=== PATIENT | female | born 1940 | race Two or more races ===

== ENCOUNTER 2022-09-03 18:50 | Emergency (ER) | payer OTHER ==
[~2022-09-03] VITALS: Ht 157.5 cm; Wt 57.6 kg
[2022-09-03] MEDS ORDERED: COZAAR100 MG (20:15)
[2022-09-03] MEDS ORDERED: PLAVIX75 MG (20:16)
[2022-09-03] MEDS ORDERED: NORVASC5 MG (20:16)
[2022-09-03] MEDS ORDERED: NEURONTIN300 MG (20:17)
[2022-09-03] MEDS ORDERED: NAMENDA5 MG (20:17)
[2022-09-03] MEDS ORDERED: TOPROL XL100 M1 (20:17)
[2022-09-03] MEDS ORDERED: LANTUS SOL100 UNIT/1 (20:18)
[2022-09-03] MEDS ORDERED: ATORVASTATIN CA20 MG (20:18)
[2022-09-03] MEDS ORDERED: NASAL MIST126 ML (20:18)
[2022-09-03] MEDS ORDERED: GLYXAMBI (20:20)
== END 2022-09-03 23:31 | disposition home or self-care (01) ==
LOC: ER 18:50
DX: S00.93XA Contusion of unspecified part of head, initial encounter (principal); W18.39XA Other fall on same level, initial encounter; Y93.89 Activity, other specified; Y92.018 Other place in single-family (private) house as the place of occurrence of the external cause; Y99.9 Unspecified external cause status; M54.2 Cervicalgia

== ENCOUNTER 2025-06-18 11:08 | Emergency (ER) | payer OTHER ==
[~2025-06-18] VITALS: Ht 157.5 cm; Wt 58.1 kg
[~2025-06-18 11:08] MED LIST: ATORVASTATIN CA20 MG; COZAAR100 MG; GLYXAMBI; LANTUS SOL100 UNIT/1; NAMENDA5 MG; NASAL MIST126 ML; NEURONTIN300 MG; NORVASC5 MG; PLAVIX75 MG; TOPROL XL100 M1
[2025-06-18] MEDS ORDERED: GLIMEPIRIDE1 MG (11:53)
[2025-06-18] MEDS ORDERED: HUMALOG100 UNIT/2 SQ (11:53)
[2025-06-18] MEDS ORDERED: KETOROLAC TROMETHAMINE 30 MG VIAL IU ONE (13:00)
[2025-06-18 13:30] LABS: BASO % 0.7 % (0.1-1.2); EOS # 0.19 (0.04-0.54); EOS % 1.8 % (0.7-7.0); LYMPH # 1.46 (1.18-3.74); LYMPH % 13.8 % (19.3-53.1); MEAN PLATELET VOLUME 10.00 fl (9.4-12.4); MONO # 0.80 (0.24-0.82); MONO % 7.6 % (4.7-12.5); NEUT # 8.00 (1.56-6.13); NEUT % 75.8 % (34.0-71.1); RED CELL DISTRIBUTION WIDTH 12.8 % (11.6-14.4)
[2025-06-18] MEDS ORDERED: KETOROLAC TROMETHAMINE 30 MG VIAL ONE (13:49)
[2025-06-18 13:50] LABS: ALT/SGPT 20.0 U/L (12-78); AST/SGOT 18.0 U/L (15-37); BILIRUBIN TOTAL 0.63 mg/dL (0.3-1.2); BUN CREA RATIO 18.0 (7.0-25.0); CREATININE SERUM 1.44 mg/dL (0.55-1.02); GFR 34.59; GLOBULINA 4.6 G/DL (2.4-3.5); OSMOLALITY SERUM 297.0 MOSM/KG (275-295)
[2025-06-18 13:59] LABS: GLUCOSE FASTING 236.0 mg/dL (65-100)
[2025-06-18] MEDS ORDERED: NORFLEX100MG PO (15:59)
[2025-06-18] MEDS ORDERED: KETO10TA2 PO (15:59)
== END 2025-06-18 16:53 | disposition home or self-care (01) ==
LOC: ER 11:08
PROVIDERS: Student in an Organized Health Care Education/Training Program
DX: S29.8XXA Other specified injuries of thorax, initial encounter (principal); T14.90XA Injury, unspecified, initial encounter; W19.XXXA Unspecified fall, initial encounter; Y93.89 Activity, other specified; Y92.098 Other place in other non-institutional residence as the place of occurrence of the external cause; Y99.8 Other external cause status; M54.50 Low back pain, unspecified; I10 Essential (primary) hypertension; E11.9 Type 2 diabetes mellitus without complications; Z79.4 Long term (current) use of insulin